=== PATIENT | male | born 1980 | race Caucasian/White ===

== ENCOUNTER 2022-06-15 10:41 | Emergency (ER) | payer OTHER, SELFPAY ==
--- NOTE | ~2022-06-15 | CT_ITS ---
EXAMINATION: CT HEAD WITHOUT CONTRAST CLINICAL INFORMATION: Headache. Nausea vomiting and diarrhea COMPARISON: None. TECHNIQUE: Contiguous axial imaging was performed from the skull base to vertex without intravenous administration of contrast. Coronal and sagittal reformatted images are performed at the CT scanner. [This CT examination was performed using dose optimization techniques as appropriate, variously including the following: *Automated exposure control *Adjustment of mA and/or kV according to patient size (this includes techniques or standardized protocols for targeted exams where dose is matched to indication/reason for exam; i.e. extremities or head) *Use of iterative reconstruction technique] DLP: 739 mGy-cm. FINDINGS: There is no evidence of acute intracranial hemorrhage or territorial infarction. No abnormal mass-effect or midline shift is seen. Almazan to white matter differentiation is well preserved. No extra-axial fluid collections are identified. The ventricles are normal in size. There is no abnormal attenuation within the brain parenchyma. Incidental note of a small thin peripheral rim calcification in the right side of the fourth ventricle There is no osseous abnormality. The mastoid air cells and visualized portions of the paranasal sinuses are well-aerated. CT/CT head/brain wo IV con IMPRESSION: No acute intracranial pathology.
[2022-06-15 11:00] VITALS: BP 144/93; PULSE 86; RESP 19; TEMP 36.6; O2SAT 96; BMI 38.2
--- NOTE | 2022-06-15 11:42 | ED.GENADULT ---
HPI - General Adult General Chief complaint: General Medical Stated complaint: fever/body aches/headaches/vomiting Time Seen by Provider: 06/15/22 11:41 Source: patient Mode of arrival: ambulatory Limitations: no limitations History of Present Illness HPI narrative: 41 year old male with a PMHx of migraines and previous COVID infection, presents to the ED with persistent HILL, fever, body aches, nausea, and vomiting that started 6 days ago. Patient states that he has experienced similar symptoms before when he previously had COVID. He tested negative for COVID 3 times since the onset of symptoms including twice at home and once at [facility]. He reports going to [facility] ED on Saturday where they did extensive testing but ultimately told him it was a viral infection. He denies any chest pain, shortness of breath, blurry vision, double vision, diarrhea, dizziness, neck pain, photophobia, known tick bite, recent trauma or falls, or any sick contacts. Onset (ago): day(s) (6) Radiation: non-radiation Severity: mild Severity scale (1-10): 3 Quality: aching and dull Pain Consistency: constant Relieving factors: none Associated symptoms: fever/chills, headaches and nausea/vomiting Treatments prior to arrival: other (Tylenol) Related Data Previous Rx's Medication Instructions Recorded [id number]-styieoarlnkgi-etihddre 1 cap PO Q8H PRN pain #10 caps 06/15/22 50 mg-300 mg-40 mg capsule (Fioricet) Allergies Allergy/AdvReac Type Severity Reaction Status Date / Time Unable to Assess Allergy Verified 06/15/22 11:03 Review of Systems Constitutional: Constitutional: Reports chills, Reports fever(s) and Reports headache(s) Eyes: Eyes: Reports no additional eye complaints, Denies blurry vision, Denies change in vision, Denies diplopia, Denies eye discharge, Denies loss of vision and Denies eye pain ENT: Denies dizziness, Reports headache(s), Denies nasal congestion and Denies sore throat Cardiovascular: Cardiovascular: Reports no additional cardiovascular complaints, Denies chest pain, Denies lightheadedness, Denies Loss of Consciousness and Denies dyspnea Respiratory: Respiratory: Denies cough and Denies dyspnea Gastrointestinal: Gastrointestinal: Reports no additional gastrointestinal complaints, Denies abdominal pain, Denies melena, Denies hematochezia, Denies change in bowel habits and Denies change in stool character Genitourinary: Genitourinary: Reports no additional male genitourinary complaints, Denies hematuria, Denies oliguria, Denies difficulty urinating, Denies dysuria, Denies urinary frequency, Denies urinary hesitancy, Denies urinary incontinence and Denies urinary urgency Musculoskeletal: Musculoskeletal: Reports no additional musculoskeletal complaints, Denies back pain, Reports myalgias, Denies numbness and Denies tingling Integumentary/Breasts: Skin/Breast: Reports system reviewed and no additional complaints, except as docu Neurologic: Denies dizziness, Reports headache(s), Denies loss of vision, Denies numbness and Denies tingling Psychiatric: Psychiatric: Reports no additional psychiatric complaints Endocrine: Endocrine: Reports no additional endocrine complaints Hematologic/Lymphatic: Hematologic/Lymphatic: Reports no additional hematologic/lymphatic complaints Allergic/Immunologic: Allergic/Immunologic: Reports no additional allergic/immunologic complaints PMFSH Past Medical History Attestation statement: The following information was validated with the patient. Source: old records reviewed and nursing notes reviewed Social History Social History Advance Directives: No Physical Exam ED Vital Signs: Vital Signs - 24 hr 06/15/22 11:00 06/15/22 12:35 06/15/22 15:22 Temperature 98 F 99.8 F 99.5 F Pulse Rate 86 82 84 Respiratory Rate 19 18 16 Blood Pressure 144/93 H 144/90 H 138/75 Pulse Oximetry 96 95 98 Oxygen Delivery Method Room Air Room Air Room Air 06/15/22 18:32 06/15/22 20:34 Temperature 99.6 F 99.6 F Pulse Rate 79 69 Respiratory Rate 16 16 Blood Pressure 126/76 105/62 Pulse Oximetry 95 94 Oxygen Delivery Method Room Air Room Air BMI result Body Mass Index 38.2 Const General: cooperative, no acute distress, alert and awake Nutritional Appearance: well nourished Orientation/consciousness: patient oriented x3 Limitations: no limitations HENMT Head: Yes normal to inspection and Yes atraumatic Ears: hearing grossly normal bilaterally and external ears normal General nose exam: Normal external nose present, no nasal discharge noted and no epistaxis Face and sinus: Yes normal facial exam, Yes sinuses nontender, No abrasion and No laceration Mouth: Normal oral and palatal mucosa present, no drooling and no muffled voice Eyes General: appearance normal, both eyes and all related structures Periorbital: periorbital findings normal Eyelids: Yes eyelids normal Conjunctivae: conjunctivae normal Pupils: Equal, round and reactive pupils present EOM: EOMs intact bilaterally Neck Neck: Yes normal visual inspection, Yes full ROM, Yes no lymphadenopathy, Yes no meningeal signs and Yes supple Lymphatic: no lymphadenopathy noted Chest Chest palpation & inspection: normal inspection of the chest Resp Effort & Inspection: normal respiratory effort and able to speak in complete sentences Auscultation: clear to auscultation bilaterally, no rales, no rhonchi and no wheezes Cardio Jugular venous distension: no JVD Rate: regular rate Rhythm: regular rhythm Heart sounds: S1 normal heart sound present Peripheral pulses: posterior tibial pulses present GI Inspection: Yes normal to inspection Palpation (GI): Soft to palpation, nontender, no guarding and not rigid General: Yes no CVA tenderness Back/Spine/Pelvis Back: no CVA tenderness Skin General skin exam: no rashes or lesions noted Lesions: no lesions Rashes: no rashes Neuro General: patient oriented x3, moves all extremities and no meningeal signs Cranial nerves: Yes Equal, round and reactive pupils present Cognition (Neuro): normal cognition Motor exam (neuro): 5/5 motor strength present throughout Sensory Exam: Normal double simultaneous stimulation for sensation Coordination: [id number]-[id number] test normal Extrem General: Yes normal to inspection, Yes full ROM and Yes capillary refill normal Psych Appearance: grossly normal Mental Status: mental status grossly normal Affect: normal affect Attitude: cooperative Thought process: Normal thought process present Thought content: Normal thought content present Insight: Good insight present (Psych) Medical Decision Making [facility] Narrative Medical decision making narrative: Patient is a 41 year old assigned male at with a history of migraines and COVID infection presenting to the emergency department today with a persistent headache and feeling generally unwell over the last 5 days. Patient's physical exam was unremarkable. Patient's blood work showed an elevated ESR and CRP. Patient's urine showed no acute process. Patient's head CT showed no acute process. I reveiewed all the records from [facility] where he had a negative CT abdomen and an unremarkable work up, including a negative tick panel. Patient's clinical presentation at this time is most consistent with a viral illness. Patient does not have any meningeal signs and I do not suspect this patient of being septic. I explained my physical exam findings as well as all test results to the patient. I answered all questions asked by the patient. Patient received IV fluids, morphine, toradol, benadryl, and reglan which he stated helped his symptoms significantly. I stressed the importance of the patient taking his medication as prescribed. I stressed the importance of the patient following up with his primary care provider. I stressed the importance of the patient returning to the emergency department immediately if his symptoms were to worsen or if he were to develop any dizziness, shortness of breath, difficulty breathing, chest pain, blurry vision, loss of vision, nausea, vomiting, abdominal pain, fever, chills, back pain, or any other complaints. Patient verbalized agreement and understanding with this treatment plan and discharge. Medical Records Medical records reviewed: Yes I reviewed the patient's medical records. Lab Data Lab results reviewed: Yes I reviewed the patient's lab results. Result diagrams: 06/15/22 12:38 06/15/22 12:38 Labs: Lab Results 06/15/22 06/15/22 06/15/22 Range/Units 12:38 12:38 12:38 WBC 7.2 (4.8-10.8) X10*3/uL RBC 4.71 (4.60-5.80) X10*6/uL Hgb 12.8 L (14.0-18.0) g/dl Hct 38.7 L (42.0-52.0) % MCV 82.2 (80.0-98.0) fL MCH 27.2 (27.0-33.0) pg MCHC 33.1 (31.0-36.0) g/dl RDW 13.3 (11.0-16.0) % Plt Count 281 (160-400) X10*3/uL MPV 10.7 (9.4-12.4) fL Immature Gran % (Auto) 0.3 (0.0-0.4) % Neut % (Auto) 77.6 H (45-73) % Lymph % (Auto) 13.1 L (20-40) % [place] % (Auto) 8.5 (2-11) % Eos % (Auto) 0.1 (0-4) % Baso % (Auto) 0.4 (0-2) % Lymph # (Auto) 0.9 L (1.2-4.9) X10*3/uL [place] # (Auto) 0.6 (0.1-1.2) X10*3/uL Eos # (Auto) 0.0 (0.0-0.4) X10*3/uL Baso # (Auto) 0.0 (0.0-0.2) X10*3/uL Abs Immat Gran (auto) 0.02 (0.00-0.03) X10*3/uL Absolute Neuts (auto) 5.6 (2.0-8.3) x10*3/uL Absolute Nucleated RBC 0.000 (0.0-0.012) X10*3/uL Nucleated RBC % (auto) 0.0 (0.0-0.2) /100WBC ESR 81 H (0-15) MM/HR Sodium 136 (135-145) mmol/L Potassium 4.1 (3.3-5.1) mmol/L Chloride 96 (96-108) mmol/L Carbon Dioxide 26 (22-29) mmol/L Anion Gap 18 (12-20) BUN 7 L (9-16) mg/dL Creatinine 0.83 (0.5-1.4) mg/dL Estim Creat Clear Calc 166.5 Estimated GFR > 60 Random Glucose 115 (60-115) mg/dL Calcium 9.0 (8.4-10.2) mg/dL Magnesium 1.7 (1.6-2.6) mg/dL Total Bilirubin 0.4 (0.0-1.0) mg/dL AST 28 (5-37) U/L ALT 39 (0-40) U/L Alkaline Phosphatase 78 (39-117) U/L C-Reactive Protein 29.72 H (< or = 0.50) mg/dL Total Protein 7.3 (6.5-8.0) g/dL Albumin 4.0 (3.5-5.0) g/dL Urine Color Urine Appearance Urine pH (5.0-9.0) Ur Specific [place] (1.005-1.025) Urine Protein (Neg-Trace) mg/dL Urine Glucose (UA) (Negative) mg/dL Urine Ketones (Negative) mg/dL Urine Blood (Negative) Urine Nitrite (Negative) Ur Leukocyte Esterase (Negative) Urine RBC (0-2) /HPF Urine WBC (0-5) /HPF Ur Squamous Epith Cells (0-2) /HPF Urine Bacteria (None Seen) Hyaline Casts (0-2) /LPF Respiratory Panel Martin Adenovirus (Rapid PCR) B.pert (TEM-PCR) B.parapertussis DNA PCR C. pneumoniae DNA (PCR) Coronavirus OC43 (PCR) Coronavirus HKU1 (PCR) Coronavirus 229E (PCR) Coronavirus NL63 (PCR) Human Metapneumovir PCR Influenza A (RT-PCR) Influenza B (RT-PCR) M. pneumoniae (PCR) Parainfluenza 1 (PCR) Parainfluenza 2 (PCR) Parainfluenza 3 (PCR) Parainfluenza 4 (PCR) RSV (PCR) Entero/Rhino (PCR) SARS-CoV-2 RNA (RT-PCR) 06/15/22 06/15/22 06/15/22 Range/Units 12:38 14:40 15:58 WBC (4.8-10.8) X10*3/uL RBC (4.60-5.80) X10*6/uL Hgb (14.0-18.0) g/dl Hct (42.0-52.0) % MCV (80.0-98.0) fL MCH (27.0-33.0) pg MCHC (31.0-36.0) g/dl RDW (11.0-16.0) % Plt Count (160-400) X10*3/uL MPV (9.4-12.4) fL Immature Gran % (Auto) (0.0-0.4) % Neut % (Auto) (45-73) % Lymph % (Auto) (20-40) % [place] % (Auto) (2-11) % Eos % (Auto) (0-4) % Baso % (Auto) (0-2) % Lymph # (Auto) (1.2-4.9) X10*3/uL [place] # (Auto) (0.1-1.2) X10*3/uL Eos # (Auto) (0.0-0.4) X10*3/uL Baso # (Auto) (0.0-0.2) X10*3/uL Abs Immat Gran (auto) (0.00-0.03) X10*3/uL Absolute Neuts (auto) (2.0-8.3) x10*3/uL Absolute Nucleated RBC (0.0-0.012) X10*3/uL Nucleated RBC % (auto) (0.0-0.2) /100WBC ESR (0-15) MM/HR Sodium (135-145) mmol/L Potassium (3.3-5.1) mmol/L Chloride (96-108) mmol/L Carbon Dioxide (22-29) mmol/L Anion Gap (12-20) BUN (9-16) mg/dL Creatinine (0.5-1.4) mg/dL Estim Creat Clear Calc Estimated GFR Random Glucose (60-115) mg/dL Calcium (8.4-10.2) mg/dL Magnesium (1.6-2.6) mg/dL Total Bilirubin (0.0-1.0) mg/dL AST (5-37) U/L ALT (0-40) U/L Alkaline Phosphatase (39-117) U/L C-Reactive Protein (< or = 0.50) mg/dL Total Protein (6.5-8.0) g/dL Albumin (3.5-5.0) g/dL Urine Color Dark Yellow Urine Appearance Cloudy Urine pH 6.0 (5.0-9.0) Ur Specific [place] 1.020 (1.005-1.025) Urine Protein 30 (1+) H (Neg-Trace) mg/dL Urine Glucose (UA) Negative (Negative) mg/dL Urine Ketones Trace (Negative) mg/dL Urine Blood Trace H (Negative) Urine Nitrite Negative (Negative) Ur Leukocyte Esterase Negative (Negative) Urine RBC 11-20 H (0-2) /HPF Urine WBC 0-5 (0-5) /HPF Ur Squamous Epith Cells 0-2 (0-2) /HPF Urine Bacteria None Seen (None Seen) Hyaline Casts 0-2 (0-2) /LPF Respiratory Panel Martin Cancelled Cancelled Adenovirus (Rapid PCR) Cancelled Cancelled B.pert (TEM-PCR) Cancelled Cancelled B.parapertussis DNA PCR Cancelled Cancelled C. pneumoniae DNA (PCR) Cancelled Cancelled Coronavirus OC43 (PCR) Cancelled Cancelled Coronavirus HKU1 (PCR) Cancelled Cancelled Coronavirus 229E (PCR) Cancelled Cancelled Coronavirus NL63 (PCR) Cancelled Cancelled Human Metapneumovir PCR Cancelled Cancelled Influenza A (RT-PCR) Cancelled Cancelled Influenza B (RT-PCR) Cancelled Cancelled M. pneumoniae (PCR) Cancelled Cancelled Parainfluenza 1 (PCR) Cancelled Cancelled Parainfluenza 2 (PCR) Cancelled Cancelled Parainfluenza 3 (PCR) Cancelled Cancelled Parainfluenza 4 (PCR) Cancelled Cancelled RSV (PCR) Cancelled Cancelled Entero/Rhino (PCR) Cancelled Cancelled SARS-CoV-2 RNA (RT-PCR) Cancelled Cancelled 06/15/22 Range/Units 15:58 WBC (4.8-10.8) X10*3/uL RBC (4.60-5.80) X10*6/uL Hgb (14.0-18.0) g/dl Hct (42.0-52.0) % MCV (80.0-98.0) fL MCH (27.0-33.0) pg MCHC (31.0-36.0) g/dl RDW (11.0-16.0) % Plt Count (160-400) X10*3/uL MPV (9.4-12.4) fL Immature Gran % (Auto) (0.0-0.4) % Neut % (Auto) (45-73) % Lymph % (Auto) (20-40) % [place] % (Auto) (2-11) % Eos % (Auto) (0-4) % Baso % (Auto) (0-2) % Lymph # (Auto) (1.2-4.9) X10*3/uL [place] # (Auto) (0.1-1.2) X10*3/uL Eos # (Auto) (0.0-0.4) X10*3/uL Baso # (Auto) (0.0-0.2) X10*3/uL Abs Immat Gran (auto) (0.00-0.03) X10*3/uL Absolute Neuts (auto) (2.0-8.3) x10*3/uL Absolute Nucleated RBC (0.0-0.012) X10*3/uL Nucleated RBC % (auto) (0.0-0.2) /100WBC ESR (0-15) MM/HR Sodium (135-145) mmol/L Potassium (3.3-5.1) mmol/L Chloride (96-108) mmol/L Carbon Dioxide (22-29) mmol/L Anion Gap (12-20) BUN (9-16) mg/dL Creatinine (0.5-1.4) mg/dL Estim Creat Clear Calc Estimated GFR Random Glucose (60-115) mg/dL Calcium (8.4-10.2) mg/dL Magnesium (1.6-2.6) mg/dL Total Bilirubin (0.0-1.0) mg/dL AST (5-37) U/L ALT (0-40) U/L Alkaline Phosphatase (39-117) U/L C-Reactive Protein (< or = 0.50) mg/dL Total Protein (6.5-8.0) g/dL Albumin (3.5-5.0) g/dL Urine Color Urine Appearance Urine pH (5.0-9.0) Ur Specific [place] (1.005-1.025) Urine Protein (Neg-Trace) mg/dL Urine Glucose (UA) (Negative) mg/dL Urine Ketones (Negative) mg/dL Urine Blood (Negative) Urine Nitrite (Negative) Ur Leukocyte Esterase (Negative) Urine RBC (0-2) /HPF Urine WBC (0-5) /HPF Ur Squamous Epith Cells (0-2) /HPF Urine Bacteria (None Seen) Hyaline Casts (0-2) /LPF Respiratory Panel Martin Cancelled Adenovirus (Rapid PCR) Cancelled B.pert (TEM-PCR) Cancelled B.parapertussis DNA PCR Cancelled C. pneumoniae DNA (PCR) Cancelled Coronavirus OC43 (PCR) Cancelled Coronavirus HKU1 (PCR) Cancelled Coronavirus 229E (PCR) Cancelled Coronavirus NL63 (PCR) Cancelled Human Metapneumovir PCR Cancelled Influenza A (RT-PCR) Cancelled Influenza B (RT-PCR) Cancelled M. pneumoniae (PCR) Cancelled Parainfluenza 1 (PCR) Cancelled Parainfluenza 2 (PCR) Cancelled Parainfluenza 3 (PCR) Cancelled Parainfluenza 4 (PCR) Cancelled RSV (PCR) Cancelled Entero/Rhino (PCR) Cancelled SARS-CoV-2 RNA (RT-PCR) Cancelled Imaging Data CT scan - head: Attestation: I personally reviewed and interpreted this imaging study as follows: My impression: No acute process. Radiologist's impression: EXAMINATION: CT HEAD WITHOUT CONTRAST CLINICAL INFORMATION: Headache. Nausea vomiting and diarrhea COMPARISON: None. TECHNIQUE: Contiguous axial imaging was performed from the skull base to vertex without intravenous administration of contrast. Coronal and sagittal reformatted images are performed at the CT scanner. [This CT examination was performed using dose optimization techniques as appropriate, variously including the following: *Automated exposure control *Adjustment of mA and/or kV according to patient size (this includes techniques or standardized protocols for targeted exams where dose is matched to indication/reason for exam; i.e. extremities or head) *Use of iterative reconstruction technique] DLP: 739 mGy-cm. FINDINGS: There is no evidence of acute intracranial hemorrhage or territorial infarction. No abnormal mass-effect or midline shift is seen. Almazan to white matter differentiation is well preserved. No extra-axial fluid collections are identified. The ventricles are normal in size. There is no abnormal attenuation within the brain parenchyma. Incidental note of a small thin peripheral rim calcification in the right side of the fourth ventricle There is no osseous abnormality. The mastoid air cells and visualized portions of the paranasal sinuses are well-aerated. CT/CT head/brain wo IV con IMPRESSION: No acute intracranial pathology. ? Dictated By: Mohinder Joseph MD Signed By: Electronically signed by Mohinder Joseph MD 06/15/22 1698 Discharge Plan Discharge Clinical Impression: Viral illness, Migraine Patient Disposition: Home, Self-Care Instructions: Migraine Headache (ED), Viral Syndrome (ED) Additional Instructions: Follow up with your primary care provider. Return to the emergency department immediately if your symptoms worsen or if you develop any dizziness, shortness of breath, difficulty breathing, chest pain, blurry vision, loss of vision, nausea, vomiting, abdominal pain, fever, chills, back pain, or any other complaints. Prescriptions: New inintlodue-sgigecklqrgot-kiis [Fioricet] 50-300-40 mg capsule 1 cap PO Q8H PRN (Reason: pain) Qty: 10 0RF Referrals: Davi Henriquez MD [Primary Care Provider] - Stand Alone Forms: Work/School Release Print Language: Persian
[2022-06-15] MEDS: ondansetron HCL 4 MG/2 ML VIAL IVPUSH ×2 (12:22→16:11)
[2022-06-15] MEDS: Ketorolac Tromethamine 15 MG/ML VIAL IVPUSH ×2 (12:22→19:50)
[2022-06-15] MEDS: 0.9 % Sodium Chloride 1,000 ML 999 ML IV ×2 (12:24→19:46)
[2022-06-15 12:35] VITALS: BP 144/90; PULSE 82; RESP 18; TEMP 37.7; O2SAT 95
[2022-06-15 12:50] LABS: MANUAL DIFF FLAG NO
[2022-06-15 12:55] LABS: Basophils Percent Auto 0.4 % (0-2); Eosinophils Percent Auto 0.1 % (0-4); Hematocrit 38.7 % (42.0-52.0); Hemoglobin 12.8 g/dl (14.0-18.0); Imm Gran Abs Auto 0.02 X10*3/uL (0.00-0.03); Imm Gran Pct Auto 0.3 % (0.0-0.4); Lymphocytes Absolute Auto 0.9 X10*3/uL (1.2-4.9); Lymphocytes Percent Auto 13.1 % (20-40); Mean Corpuscular HGB Conc 33.1 g/dl (31.0-36.0); Mean Corpuscular Hemoglobin 27.2 pg (27.0-33.0); Mean Corpuscular Volume 82.2 fL (80.0-98.0); Mean Platelet Volume 10.7 fL (9.4-12.4); Monocytes Absolute Auto 0.6 X10*3/uL (0.1-1.2); Monocytes Percent Auto 8.5 % (2-11); Neutrophils Absolute Auto 5.6 x10*3/uL (2.0-8.3); Neutrophils Percent Auto 77.6 % (45-73); Platelet Count 281 X10*3/uL (160-400); Red Blood Count 4.71 X10*6/uL (4.60-5.80); Red Cell Distribution Width 13.3 % (11.0-16.0); White Blood Count 7.2 X10*3/uL (4.8-10.8)
--- NOTE | 2022-06-15 13:01 | PC.NURSE ---
PT A&Ox3, reports headache and fevers at home since Saturday. Denies chest pain and dizziness. IV placed, meds given as documented.
[2022-06-15 13:06] LABS: Alanine Aminotransferase 39 U/L (0-40); Alkaline Phosphatase 78 U/L (39-117); Anion Gap 18 (12-20); Aspartate Amino Transferase 28 U/L (5-37); Bilirubin Total 0.4 mg/dL (0.0-1.0); Blood Urea Nitrogen 7 mg/dL (9-16); C Reactive Protein 29.72 mg/dL (< or = 0.50); Carbon Dioxide 26 mmol/L (22-29); Chloride 96 mmol/L (96-108); Creatinine Clr Calc Pharmacy 166.5; Estimated Glomerular Filt Rate > 60; Glucose Random 115 mg/dL (60-115); Magnesium 1.7 mg/dL (1.6-2.6); Potassium 4.1 mmol/L (3.3-5.1); Sodium 136 mmol/L (135-145); Total Protein 7.3 g/dL (6.5-8.0)
[2022-06-15 14:17] LABS: Erythrocyte Sedimentation Rate 81 MM/HR (0-15)
[2022-06-15 15:22] VITALS: BP 138/75; PULSE 84; RESP 16; TEMP 37.5; O2SAT 98
[2022-06-15 16:07] LABS: Appearance Urine Cloudy; Color Urine Dark Yellow; Glucose Urine UA Negative (Negative); Leukocyte Esterase Urine Negative (Negative); Nitrite Urine Negative (Negative); UMIC TRIGGER UACC YES; Urine Blood Trace (Negative); Urine Ketones Trace mg/dL (Negative); Urine Protein 30 (1+) mg/dL (Neg-Trace)
[2022-06-15] MEDS: Morphine Sulfate 4 MG/ML CARTRIDGE IVPUSH (16:09)
[2022-06-15 16:12] LABS: Bacteria Urine None Seen (None Seen); Hyaline Casts Urine 0-2 /LPF (0-2); Squamous Epithelial Cell Urine 0-2 /HPF (0-2); WBC Urine 0-5 /HPF (0-5)
[2022-06-15] MEDS: Acetaminophen 325 MG TABLET 650 MG PO (17:49)
[2022-06-15 18:32] VITALS: BP 126/76; PULSE 79; RESP 16; TEMP 37.6; O2SAT 95
[2022-06-15] MEDS: Metoclopramide HCl 10 MG/2 ML VIAL IVPUSH (19:49)
[2022-06-15] MEDS: diphenhydrAMINE HCL 50 MG/ML VIAL IVPUSH (19:50)
[2022-06-15 20:34] VITALS: BP 105/62; PULSE 69; RESP 16; TEMP 37.6; O2SAT 94
[2022-06-16 11:34] LABS: Adenovirus PCR Not Detected (Not Detect.); Bordetella parapertussis PCR Not Detected (Not Detect.); Bordetella pertussis PCR Not Detected (Not Detect.); Chlamydia pneumoniae PCR Not Detected (Not Detect.); Coronavirus 229E PCR Not Detected (Not Detect.); Coronavirus HKU1 PCR Not Detected (Not Detect.); Coronavirus NL63 PCR Not Detected (Not Detect.)
[2022-06-16 11:35] LABS: Coronavirus OC43 PCR Not Detected (Not Detect.); Human metapneumovirus PCR Not Detected (Not Detect.); Influenza A PCR Not Detected (Not Detect.); Influenza B PCR Not Detected (Not Detect.); Mycoplasma pneumoniae PCR Not Detected (Not Detect.); Parainfluenza 1 PCR Not Detected (Not Detect.); Parainfluenza 2 PCR Not Detected (Not Detect.); Parainfluenza 3 PCR Not Detected (Not Detect.); Parainfluenza 4 PCR Not Detected (Not Detect.); RSV PCR Not Detected (Not Detect.); Rhino/Enterovirus PCR Not Detected (Not Detect.); SARS-CoV-2 PCR Not Detected (Not Detect.)
[2022-06-17 23:42] LABS: A. Phagocytphilium DNA,RT-PCR NOT DETECTED (NOT DETECTED); Babesia Microti DNA, RT-PCR NOT DETECTED (NOT DETECTED); Borrelia Miyamotoi,DNA RT-PCR NOT DETECTED (NOT DETECTED); E.Chaffeensis DNA RT-PCR NOT DETECTED (NOT DETECTED); Lyme(Borrelia ssp)DNA RT-PCR NOT DETECTED (NOT DETECTED)
[2022-06-19 12:58] LABS: Source-Tick borne disease BLOOD
== END 2022-06-15 21:06 | disposition home or self-care (01) ==
PROVIDERS: Physician Assistant Medical; Emergency Provider Student in an Organized Health Care Education/Training Program; PCP Internal Medicine
DX: G43.909 Migraine, unspecified, not intractable, without status migrainosus (principal); R50.9 Fever, unspecified; M79.10 Myalgia, unspecified site; Z79.899 Other long term (current) drug therapy; Z20.822 Contact with and (suspected) exposure to COVID-19
CPT/HCPCS: 36415; 70450; 80053; 81001; 83735; 85025; 85652; 86140; 87633; 87798; 87801; 96361; 96374; 96375; 96376; 99284; J1200; J1885; J2270; J2405; J2765

== ENCOUNTER 2022-06-19 12:53 | Emergency (ER) | payer OTHER, SELFPAY ==
[2022-06-19 12:57] VITALS: BP 159/84; PULSE 89; RESP 18; TEMP 36.6; O2SAT 95; BMI 36.9
[2022-06-19 14:03] LABS: MANUAL DIFF FLAG NO
[2022-06-19 14:04] LABS: Basophils Percent Auto 0.3 % (0-2); Eosinophils Percent Auto 0.2 % (0-4); Hematocrit 38.3 % (42.0-52.0); Hemoglobin 12.7 g/dl (14.0-18.0); Imm Gran Abs Auto 0.21 X10*3/uL (0.00-0.03); Imm Gran Pct Auto 1.7 % (0.0-0.4); Lymphocytes Absolute Auto 1.8 X10*3/uL (1.2-4.9); Mean Corpuscular HGB Conc 33.2 g/dl (31.0-36.0); Mean Corpuscular Hemoglobin 27.1 pg (27.0-33.0); Mean Corpuscular Volume 81.7 fL (80.0-98.0); Mean Platelet Volume 9.8 fL (9.4-12.4); Monocytes Absolute Auto 1.5 X10*3/uL (0.1-1.2); Monocytes Percent Auto 12.1 % (2-11); Neutrophils Absolute Auto 8.5 x10*3/uL (2.0-8.3); Neutrophils Percent Auto 70.7 % (45-73); Platelet Count 389 X10*3/uL (160-400); Red Blood Count 4.69 X10*6/uL (4.60-5.80); Red Cell Distribution Width 14.2 % (11.0-16.0)
[2022-06-19 14:05] LABS: Appearance Urine Cloudy; Color Urine Yellow; Glucose Urine UA Negative (Negative); Leukocyte Esterase Urine Negative (Negative); Nitrite Urine Negative (Negative); Specific Gravity - Urine 1.025 (1.005-1.025); UMIC TRIGGER UACC YES; Urine Blood Trace (Negative); Urine Ketones Trace mg/dL (Negative); Urine Protein 30 (1+) mg/dL (Neg-Trace)
[2022-06-19 14:08] LABS: Bacteria Urine None Seen (None Seen); Hyaline Casts Urine 0-2 /LPF (0-2); WBC Urine 0-5 /HPF (0-5)
[2022-06-19 14:20] LABS: Alanine Aminotransferase 59 U/L (0-40); Albumin Level 3.9 g/dL (3.5-5.0); Alkaline Phosphatase 86 U/L (39-117); Anion Gap 16 (12-20); Aspartate Amino Transferase 41 U/L (5-37); Bilirubin Direct 0.2 mg/dL (0.0-0.5); Bilirubin Total 0.3 mg/dL (0.0-1.0); Blood Urea Nitrogen 9 mg/dL (9-16); Chloride 94 mmol/L (96-108); Creatinine Clr Calc Pharmacy 163.5; Estimated Glomerular Filt Rate > 60; Glucose Random 122 mg/dL (60-115); Lipase 19 U/L (8-78); Sodium 136 mmol/L (135-145); Total Protein 7.2 g/dL (6.5-8.0)
[2022-06-19 14:29] LABS: Carbon Dioxide 30 mmol/L (22-29)
[2022-06-19 15:15] LABS: Influenza A PCR NEGATIVE (Negative); Influenza B PCR NEGATIVE (Negative); Resp Syncy Virus RNA Qual PCR NEGATIVE (Negative); SARS COV2 PCR INHOUSE NEGATIVE (Negative)
[2022-06-19 15:56] VITALS: BP 145/89; PULSE 92; RESP 18; TEMP 38.3; O2SAT 95
[2022-06-19] MEDS: Acetaminophen 325 MG TABLET 650 MG PO (15:59)
[2022-06-19 18:35] VITALS: BP 130/74; PULSE 76; RESP 16; TEMP 37.4; O2SAT 95
--- NOTE | 2022-06-19 19:16 | ED.GENADULT ---
HPI - General Adult General Chief complaint: General Medical Stated complaint: weak, not eating, fever Time Seen by Provider: 06/19/22 18:30 Source: patient Mode of arrival: ambulatory Limitations: language barrier ([place]-speaking medical center manager utilized) History of Present Illness HPI narrative: Patient is a 41-year-old male presents emergency department for evaluation of multiple symptoms. He reports symptom onset to have been 10 days ago. He has been experiencing intermittent headache, fevers, fatigue, body aches, nausea, vomiting, decreased appetite. States he was seen approximately 1 week ago at [facility], and was seen in this emergency department 5 days ago. States he has had multiple CT scans as well as blood work, and everything has been normal by his report. He states that he continues to have symptoms, which he does note are typically worse in the evening. Denies recent unintentional weight loss, bloody or coffee-ground emesis, bloody or dark stools, abdominal pain, chest pain, shortness of breath, difficulty breathing, cough. Related Data Previous Rx's Medication Instructions Recorded mbzpowuicf-mrxowpnegzgbm-srxowkzb 1 cap PO Q8H PRN pain #10 caps 06/15/22 50 mg-300 mg-40 mg capsule (Fioricet) ondansetron HCl 4 mg tablet 4 mg PO Q8H PRN nausea and 06/19/22 vomiting 4 days #15 tabs Allergies Allergy/AdvReac Type Severity Reaction Status Date / Time No Known Allergies Allergy Verified 06/19/22 15:58 Review of Systems Review of Systems: Constitutional: No weight loss. Positive fever. No chills. No weakness. Positive fatigue. Eye: No swelling. No redness. ENT: No sore throat. No rhinorrhea. No nasal congestion. No sore throat. No difficulty swallowing. Skin: No rash. No itching. Cardiovascular: No chest pain. No chest pressure. No palpitations. No pedal edema. Respiratory: No shortness of breath. No cough. No sputum production. Gastrointestinal: Positive anorexia. Positive nausea. Positive vomiting. No diarrhea. No abdominal pain. No blood in stool. Genitourinary: No burning micturition. No urinary frequency. No incontinence. Neurologic: Positive headache. No dizziness. No pre-syncope/ syncope. No unilateral weakness. No ataxia. No numbness. No tingling. No change in bowel or bladder control. Musculoskeletal: Positive muscle aches. No back pain. No joint pain. No stiffness. Hematologic: No bleeding. No bruising. Lymphatics: No enlarged lymph nodes. Psychiatric:No depression. No anxiety. Endocrine: No polyuria. No polydipsia. Yes all other systems are reviewed and are negative [facility] Past Medical History Attestation statement: The following information was validated with the patient. Source: old records reviewed Social History Social History Advance Directives: No Advance Directives Information Provided: No Physical Exam ED Vital Signs: Vital Signs - 24 hr 06/19/22 12:57 06/19/22 15:56 06/19/22 18:35 Temperature 98 F 100.9 F H 99.4 F Pulse Rate 89 92 76 Respiratory Rate 18 18 16 Blood Pressure 159/84 H 145/89 H 130/74 Pulse Oximetry 95 95 95 Oxygen Delivery Method Room Air Room Air Room Air BMI result Body Mass Index 36.9 Appearance: Alert.?Oriented to person, place and time. No acute distress.?Normal affect. Eyes: Pupils equal, round and reactive to light.? ENT: Pharynx normal.?? Neck: Normal inspection.? Neck supple.?? CVS: Heart sounds normal. Normal heart rate and rhythm.? Pulses normal.?? Respiratory: No respiratory distress.? Lung sounds clear to auscultation bilaterally?? Abdomen: Soft and non-tender. Normoactive bowel sounds. Back: No midline spinal tenderness, step-offs, deformities. No areas of fluctuance it is, induration, erythema, warmth. No lesions wounds or rashes. Skin: Skin warm and dry.? Normal skin color.? Extremities: No lower extremity edema.? Neuro: Moves all extremities spontaneously. Sensation intact bilaterally. CN II-XII intact. No focal neuro deficits. Ambulates with normal steady gait. Course Course Course Narrative: Overall he appears fatigued, is able to ambulate with a slow steady gait. Vital signs overall stable, he was febrile while in the waiting room with T-max 100.9 degrees responding to Tylenol. No meningeal signs not consistent with meningitis. No focal neurological deficits. No palpable tenderness of the spine Evelia does not appear consistent with spinal abscess or epidural abscess. Had labs obtained from triage which reveal a very mild leukocytosis at 12.0, normocytic anemia, overall unremarkable BMP, no renal injury, very mildly elevated AST and ALT but no right upper quadrant tenderness or abdominal pain upon examination. Urinalysis not consistent with urinary tract infection. Was seen in the emergency department 06/15/2022, had extensive workup at that time, labs overall unremarkable aside from elevated inflammatory markers head CT was unremarkable, a records from [facility] were reviewed as well. Tick panel, respiratory pathogen panel obtained that day have all resulted as negative, COVID-19, influenza testing are negative as well. At this time, symptoms do appear consistent with continuous viral infection, although cannot completely exclude autoimmune diseases. However, discussed with patient that this would need to be further worked up outpatient with a primary care provider. Patient tolerating oral intake while in the emergency department. Patient be discharged home with new prescription for ondansetron, advised hydration, bland diet with slow progression. Reviewed worrisome signs and symptoms to return back to the emergency department for. Alternating between acetaminophen and ibuprofen as needed for fever/pain. All questions were answered. Patient discharged home in stable condition, ambulatory with a slow steady gait. Medical Decision Making Medical Records Medical records reviewed: Yes I reviewed the patient's medical records. Lab Data Lab results reviewed: Yes I reviewed the patient's lab results. Result diagrams: 06/19/22 13:54 06/19/22 13:54 Labs: Lab Results 06/19/22 06/19/22 06/19/22 Range/Units 13:54 13:54 13:54 WBC 12.0 H (4.8-10.8) X10*3/uL RBC 4.69 (4.60-5.80) X10*6/uL Hgb 12.7 L (14.0-18.0) g/dl Hct 38.3 L (42.0-52.0) % MCV 81.7 (80.0-98.0) fL MCH 27.1 (27.0-33.0) pg MCHC 33.2 (31.0-36.0) g/dl RDW 14.2 (11.0-16.0) % Plt Count 389 D (160-400) X10*3/uL MPV 9.8 (9.4-12.4) fL Immature Gran % (Auto) 1.7 H (0.0-0.4) % Neut % (Auto) 70.7 (45-73) % Lymph % (Auto) 15.0 L (20-40) % Orange % (Auto) 12.1 H (2-11) % Eos % (Auto) 0.2 (0-4) % Baso % (Auto) 0.3 (0-2) % Lymph # (Auto) 1.8 (1.2-4.9) X10*3/uL Orange # (Auto) 1.5 H (0.1-1.2) X10*3/uL Eos # (Auto) 0.0 (0.0-0.4) X10*3/uL Baso # (Auto) 0.0 (0.0-0.2) X10*3/uL Abs Immat Gran (auto) 0.21 H (0.00-0.03) X10*3/uL Absolute Neuts (auto) 8.5 H (2.0-8.3) x10*3/uL Absolute Nucleated RBC 0.000 (0.0-0.012) X10*3/uL Nucleated RBC % (auto) 0.0 (0.0-0.2) /100WBC Sodium 136 (135-145) mmol/L Potassium 4.0 (3.3-5.1) mmol/L Chloride 94 L (96-108) mmol/L Carbon Dioxide 30 H (22-29) mmol/L Anion Gap 16 (12-20) BUN 9 (9-16) mg/dL Creatinine 0.83 (0.5-1.4) mg/dL Estim Creat Clear Calc 163.5 Estimated GFR > 60 Random Glucose 122 H (60-115) mg/dL Calcium 9.0 (8.4-10.2) mg/dL Total Bilirubin 0.3 (0.0-1.0) mg/dL Direct Bilirubin 0.2 (0.0-0.5) mg/dL AST 41 H D (5-37) U/L ALT 59 H (0-40) U/L Alkaline Phosphatase 86 (39-117) U/L Total Protein 7.2 (6.5-8.0) g/dL Albumin 3.9 (3.5-5.0) g/dL Lipase 19 (8-78) U/L Urine Color Urine Appearance Urine pH (5.0-9.0) Ur Specific [place] (1.005-1.025) Urine Protein (Neg-Trace) mg/dL Urine Glucose (UA) (Negative) mg/dL Urine Ketones (Negative) mg/dL Urine Blood (Negative) Urine Nitrite (Negative) Ur Leukocyte Esterase (Negative) Urine RBC (0-2) /HPF Urine WBC (0-5) /HPF Ur Squamous Epith Cells (0-2) /HPF Urine Bacteria (None Seen) Hyaline Casts (0-2) /LPF Influenza Type A (PCR) NEGATIVE (Negative) Influenza Type B (PCR) NEGATIVE (Negative) RSV RNA Qual (PCR) NEGATIVE (Negative) SARS-CoV-2 RNA (RT-PCR) NEGATIVE (Negative) 06/19/22 Range/Units 13:54 WBC (4.8-10.8) X10*3/uL RBC (4.60-5.80) X10*6/uL Hgb (14.0-18.0) g/dl Hct (42.0-52.0) % MCV (80.0-98.0) fL MCH (27.0-33.0) pg MCHC (31.0-36.0) g/dl RDW (11.0-16.0) % Plt Count (160-400) X10*3/uL MPV (9.4-12.4) fL Immature Gran % (Auto) (0.0-0.4) % Neut % (Auto) (45-73) % Lymph % (Auto) (20-40) % Orange % (Auto) (2-11) % Eos % (Auto) (0-4) % Baso % (Auto) (0-2) % Lymph # (Auto) (1.2-4.9) X10*3/uL Orange # (Auto) (0.1-1.2) X10*3/uL Eos # (Auto) (0.0-0.4) X10*3/uL Baso # (Auto) (0.0-0.2) X10*3/uL Abs Immat Gran (auto) (0.00-0.03) X10*3/uL Absolute Neuts (auto) (2.0-8.3) x10*3/uL Absolute Nucleated RBC (0.0-0.012) X10*3/uL Nucleated RBC % (auto) (0.0-0.2) /100WBC Sodium (135-145) mmol/L Potassium (3.3-5.1) mmol/L Chloride (96-108) mmol/L Carbon Dioxide (22-29) mmol/L Anion Gap (12-20) BUN (9-16) mg/dL Creatinine (0.5-1.4) mg/dL Estim Creat Clear Calc Estimated GFR Random Glucose (60-115) mg/dL Calcium (8.4-10.2) mg/dL Total Bilirubin (0.0-1.0) mg/dL Direct Bilirubin (0.0-0.5) mg/dL AST (5-37) U/L ALT (0-40) U/L Alkaline Phosphatase (39-117) U/L Total Protein (6.5-8.0) g/dL Albumin (3.5-5.0) g/dL Lipase (8-78) U/L Urine Color Yellow Urine Appearance Cloudy Urine pH 6.0 (5.0-9.0) Ur Specific [place] 1.025 (1.005-1.025) Urine Protein 30 (1+) H (Neg-Trace) mg/dL Urine Glucose (UA) Negative (Negative) mg/dL Urine Ketones Trace (Negative) mg/dL Urine Blood Trace H (Negative) Urine Nitrite Negative (Negative) Ur Leukocyte Esterase Negative (Negative) Urine RBC 6-10 H (0-2) /HPF Urine WBC 0-5 (0-5) /HPF Ur Squamous Epith Cells 3-5 (0-2) /HPF Urine Bacteria None Seen (None Seen) Hyaline Casts 0-2 (0-2) /LPF Influenza Type A (PCR) (Negative) Influenza Type B (PCR) (Negative) RSV RNA Qual (PCR) (Negative) SARS-CoV-2 RNA (RT-PCR) (Negative) Discharge Plan Discharge Clinical Impression: Acute viral syndrome Patient Disposition: Home, Self-Care Instructions: Viral Syndrome (ED) Additional Instructions: Be sure to rest, stay well hydrated drinking plenty of fluids, eat small frequent meals. Tylenol/ibuprofen can be used as needed for fever/pain. Ondansetron as needed for nausea. Introduce a bland diet including crackers, bananas, rice, soup, toast avoid vegetables. This may slowly begin to progress to plain baked or boiled chicken or turkey. Avoid dairy products or foods high in fat increase as this may worsen your symptoms. As we discussed, it is very important that you establish care with a new primary care provider. You have been given contact information for primary care providers associated with this hospital system. You may return to the emergency department with any new or worsening symptoms or concerns. Aseg?rese de descansar, mantenerse khanh hidratado, beber muchos l?quidos, comer comidas karis?as y frecuentes. Se puede usar Tylenol/ibuprofen seg?n sea necesario para la fiebre/el dolor. Ondansetr?n seg?n sea necesario para las n?useas. Introduzca jordana dieta blanda que incluya galletas saladas, pl?tanos, arroz, sopa, tostadas y evite las verduras. [place] puede comenzar lentamente a progresar a li o pavo al horno o hervido. Evite los productos l?cteos o los alimentos con alto contenido de grasa, ya que esto puede empeorar ananda s?ntomas. [place] comentamos, es muy importante que establezca la atenci?n con un nuevo proveedor de atenci?n primaria. Puede regresar al departamento de emergencias con cualquier s?ntoma o inquietud nueva o que empeore. Prescriptions: New ondansetron HCl 4 mg tablet 4 mg PO Q8H PRN (Reason: nausea and vomiting) 4 Days Qty: 15 0RF No Action [id number] [Fioricet] 50-300-40 mg capsule 1 cap PO Q8H PRN (Reason: pain) Qty: 10 0RF Referrals: Physician,None [Primary Care Provider] - Interventions: ED Discharge Assessment Last Done: 06/19/22 19:56 Discharge Date/Time: 06/19/22 19:57 Print Language: [place]
== END 2022-06-19 19:57 | disposition home or self-care (01) ==
PROVIDERS: Emergency Provider Student in an Organized Health Care Education/Training Program
DX: B34.9 Viral infection, unspecified (principal); R50.9 Fever, unspecified; R11.0 Nausea; Z20.822 Contact with and (suspected) exposure to COVID-19
CPT/HCPCS: 0241U; 36415; 80048; 80076; 81001; 83690; 85025; 99283

== ENCOUNTER 2025-05-17 11:43 | Emergency (ER) | payer OTHER, SELFPAY ==
--- OUTSIDE RECORDS SUMMARY | 2025-05-13 16:00 | XMS_ITS | Encounter Summary ---
Author Organization [facility] Address [address] [place] [address] Care Team Providers Care Field Hauler Name Role Phone Marielle Oconnell MD Primary Care Provider [phone] Encounter Details Date Type Department Care Team ([facility] st Contact Info) Description 05/13/2025 4:00 PM EDT Office Visit [facility] [address] [place] [id number] Alee Johnson PA [address] [place] [address] Migraine without aura and without status migrainosus, not intractable (Primary Dx) Social History Tobacco Use Types Packs/Day Years Used Date Smoking Tobacco: Never Smokeless Tobacco: Never Sex and Gender Information Value Date Recorded Sex Assigned at Not on file Legal Sex Male 2:34 PM EST Gender Identity Not on file Sexual Orientation Not on file documented as of this encounter Last Filed Vital Signs Vital Sign Reading Time Taken Comments Blood Pressure 161/106 05/13/2025 4:01 PM EDT Pulse 76 05/13/2025 4:01 PM EDT Temperature - - Respiratory Rate - - Oxygen Saturation 99% 05/13/2025 4:01 PM EDT Inhaled Oxygen Concentration - - Weight - - Height - - Body Mass Index - - documented in this encounter Ordered Prescriptions Prescription Sig Dispense Quantity Refills Last Filled Start Date End Date magnesium oxide (MAG-OX) 400 mg magnesium tablet Take 1 tablet (400 mg total) by mouth 1 (one) time each day. 30 tablet 5 05/13/2025 riboflavin (VITAMIN B2) 400 mg tablet Take 1 tablet (400 mg total) by mouth 1 (one) time each day. 60 tablet 5 05/13/2025 6 rizatriptan (MAXALT) 10 mg tablet Take 1 tablet (10 mg total) by mouth 1 (one) time if needed for migraine (may repeat x1). May repeat in 2 hours if unresolved. Do not exceed 30 mg in 24 hours. 9 tablet 5 05/13/2025 documented in this encounter Progress Notes * EBENEZER Nix - 05/13/2025 4:00 PM EDT HPI: Keyur Toro is a 44 y.o. year old male referred to our center by Marielle Oconnell MD for evaluation and management of headache . 44 yo male with no significant PMH of Lt shoulder surgery Interval history Patient returns for follow-up visit. He states that he never received Rx for amitriptyline after last visit. Headaches continue Tried sumatriptan for treatment of acute migraine but this was ineffective. Initial visit history: Headache: Patient presents for evaluation of headache. Symptoms began about started in childhood , Generally, the headaches last about several hours and occur every morning. The headaches are usuallyworse in the morning. The headaches are usually moderate, pounding, and throbbing and are located in frontal and cervical . The patient rates her most severe headaches a 8 on a scale from 1 to 10. Recently, the headaches have been stable. Work attendance or other daily activities are affected by the headaches. Precipitating factors include: AC , Putting helmet . The headaches are usually not preceded by an aura. Associated neurologic symptoms: nausea , . The patient denies nausea , . Home treatment has included excedrin , advil with some improvement. Other history includes: migraine headachesdiagnosed in the past. Family history includes migraine headaches in mother and malignant tumor . Apart from the headache patient denies any blurry vision double vision tingling numbness or weakness and occasional left upper extremity numbness when he sleeps for prolonged period of time In relation to sleep habits sleep 5-6 hrs Sleep apnea symptoms he snores and stop breathing wakes up unrefreshed and exhausted throughout theday and wake up with morning headache No past medical history on file. Current Outpatient Medications Medication Sig Dispense Refill cholecalciferol (Vitamin D3) 50 mcg (2,000 unit) tablet Take 1 tablet (2,000 Units total) by mouth 1 (one) time each day. 90 tablet 2 magnesium oxide (MAG-OX) 400 mg magnesium tablet Take 1 tablet (400 mg total) by mouth 1 (one) timeeach day. 30 tablet 5 riboflavin (VITAMIN B2) 400 mg tablet Take 1 tablet (400 mg total) by mouth 1 (one) time each day. 60 tablet 5 rizatriptan (MAXALT) 10 mg tablet Take 1 tablet (10 mg total) by mouth 1 (one) time if needed for migraine (may repeat x1). May repeat in 2 hours if unresolved. Do not exceed 30 mg in 24 hours. 9 tablet 5 SUMAtriptan (IMITREX) 50 mg tablet Take 1 tablet (50 mg total) by mouth 1 (one) time if needed for migraine (may repeat x1). May repeat dose once in 2 hours if no relief. Do not exceed 2 doses in 24 hours. 9 tablet 3 No current facility-administered medications for this visit. No Known Allergies Social history: Tobacco: No Alcohol no Drug use: no Caffeine intake none [employer] Family history: There is no significant family history Neurologic Exam: Vitals: 05/13/25 1601 BP: (!) 161/106 Pulse: 76 SpO2: 99% MS: AOx3 CN: perrla, V1-3 intact to LT, face symmetric, bilateral SCM/trapezius 5/5, tongue/uvula/palate midline Motor: 5/5 in all extremities Sensation: Intact to light touch, temperature, and vibration in all extremities Reflexes: 2+ in bilateral biceps and patellae, toes downgoing bilaterally Cerebellar: FNF intact bilaterally, FFM intact bilaterally, YULIANA intact bilaterally, tandem gait normal, romberg negative Labs: Imaging: All images were reviewed by me. MRI brain 03/17/2025: Normal brain MRI with and without contrast A/P: Keyur Toro is a 44 y.o. year old male with migraine. He is not interested in a prescription medication for migraine prophylaxis at this time, but is willing to add riboflavin and magnesium. Will try rizatriptan PRN acute migraine, -declines migraine prophyalxis -will add Mg and riboflavin both 400 mg daily -begin trial of rizatriptan 10 mg PRN acute migraine -reviewed recent normal MRI brain results Counseled on avoidance of migraine triggers, particularly sleep deprivation, missed meals, dehydration, certain foods and avoiding excessive caffeine/NSAIDs. -RTC in 3 months for follow up or sooner PRN The patient and I discussed the clinical picture during today's appointment. Additional time was spent prior to the actual appointment reviewing records, lab values and imaging results and preparing documentation for today's visit. There was also time spent following the in person visit documenting, arranging for further diagnostic testing and follow-up appointments. The entire time spent in thisprocess was greater than 30 minutes. The majority of the actual vyww-ef-[id number] visit was spent counseling the patient with respect to the current neurological picture. EBENEZER Nix documented in this encounter Plan of Treatment Upcoming Encounters Date Type Department Care Team (Late st Contact Info) Description 07/21/2025 3:30 PM EST Office Visit [facility] [place] [facility] [place] [address] [place] [phone] Alee Johnson PA [address] [place] [address] 11/29/2025 3:45 PM EDT Office Visit [facility] - [place] [address] [place] [phone] Marielle Oconnell MD [address] [place] [phone] documented as of this encounter Visit Diagnoses Diagnosis Migraine without aura and without status migrainosus, not intractable- Primary documented in this encounter Discontinued Medications Medication Sig Discontinue Reason Start Date End Da te SUMAtriptan (IMITREX) 50 mg tablet Take 1 tablet (50 mg total) by mouth 1 (one) time if needed for migraine (may repeat x1). May repeat dose once in 2 hours if no relief. Do not exceed 2 doses in 24 hours. Therapy completed 03/09/2025 05/16/2025 documented as of this encounter Care Teams Field Hauler Relationship Specialty Start Date End Date Marielle Oconnell MD [address] [place] [address] [address] [place] [address] PCP - General 10/04/22 documented as of this encounter
[2025-05-17] VITALS (12 sets, daily range): BP systolic 111–130; BP diastolic 74–91; PULSE 55–68; RESP 12–16; TEMP 36.9; O2SAT 94–98; BMI 36.4
--- NOTE | ~2025-05-17 | XR_ITS ---
EXAMINATION: XR SHOULDER 2 OR MORE VIEWS LEFT HISTORY: pain, injury COMPARISON: There are no prior studies available for comparison. FINDINGS: Three portable views of the left shoulder are submitted. Osseous mineralization is normal. Evaluation is extremely limited by difficulty in patient positioning. The glenoid is not well visualized. No obvious fracture is seen. The soft tissues are unremarkable. XR/XR shoulder LT min 2V IMPRESSION: Limited examination. A repeat study performed without portable technique is recommended. Electronically signed by: Jason Guerrier MD 05/17/2025 12:20 PM EDT
--- NOTE | ~2025-05-17 | XR_ITS ---
EXAMINATION: XR SHOULDER, LEFT CLINICAL INFORMATION: post reduction COMPARISON: X-ray from one hour 15 minutes ago TECHNIQUE: Internal rotation and scapular Y view of the left shoulder. FINDINGS: The humeral head projects over the glenoid on the scapular Y-view. No fracture is identified. AC joint is intact. XR/XR shoulder LT min 2V IMPRESSION: Interval reduction of anterior dislocation. Electronically signed by: Eloy Ortiz MD 05/17/2025 01:29 PM EDT
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
[2025-05-17] MEDS: diazePAM 10 MG/2 ML CARTRIDGE 5 MG IVPUSH (12:30)
--- NOTE | 2025-05-17 13:05 | PC.NURSE ---
Respiratory contacted for procedural sedation, MD aware. Awaiting arrival.
--- OUTSIDE RECORDS SUMMARY | 2025-05-17 15:03 | XMS_ITS | Clinical Summary ---
Author Organization [facility] Address [address] [place] [address] Phone Care Team Providers Care Dockworker Name Role Phone Marielle Oconnell MD Primary Care Provider [phone] Allergies No known active allergies Medications cholecalciferol (Vitamin D3) 50 mcg (2,000 unit) tablet Take 1 tablet (2,000 Units total) by mouth 1 (one) time each day. 90 tablet 2 5 Active rizatriptan (MAXALT) 10 mg tablet Take 1 tablet (10 mg total) by mouth 1 (one) time if needed for migraine (may repeat x1). May repeat in 2 hours if unresolved. Do not exceed 30 mg in 24 hours. 9 tablet 5 5 05/13/20 26 Active riboflavin (VITAMIN B2) 400 mg tablet Take 1 tablet (400 mg total) by mouth 1 (one) time each day. 60 tablet 5 5 05/08/20 26 Active magnesium oxide (MAG-OX) 400 mg magnesium tablet Take 1 tablet (400 mg total) by mouth 1 (one) time each day. 30 tablet 5 5 Active SUMAtriptan (IMITREX) 50 mg tablet Take 1 tablet (50 mg total) by mouth 1 (one) time if needed for migraine (may repeat x1). May repeat dose once in 2 hours if no relief. Do not exceed 2 doses in 24 hours. 9 tablet 3 5 05/16/20 25 Discontinu ed(Therapy completed) Encounters Date Type Department Care Team Description 05/13/2025 4:00 PM EDT Office Visit [facility] [address] [phone] Alee Johnson PA Migraine without aura and without status migrainosus, not intractable (Primary Dx) 03/17/2025 1:35 PM EDT - 03/17/2025 11:59 PM EDT Hospital Encounter [facility] [address] [place] [address] Nonintractable headache, unspecified chronicity pattern, unspecified headache type Discharge Disposition: Home or Self Care 03/09/2025 2:00 PM EDT Office Visit [address] [phone] Kevin Jackson MD Nonintractable headache, unspecified chronicity pattern, unspecified headache type from Last 3 Months Family History Medical History Relation Name Comments Other cancer Aunt Diabetes Father Hypertension Father Relation Name Status Comments Aunt Alive Father Social History Tobacco Use Types Packs/Day Years Used Date Smoking Tobacco: Never Smokeless Tobacco: Never Tobacco Cessation:Counseling Given: Not Answered Sex and Gender Information Value Date Recorded Sex Assigned at Not on file Legal Sex Male 2:34 PM EST Gender Identity Not on file Sexual Orientation Not on file Obstetrics History Last Filed Vital Signs Vital Sign Reading Time Taken Comments Blood Pressure 161/106 05/13/2025 4:01 PM EDT Pulse 76 05/13/2025 4:01 PM EDT Temperature 36.3 C (97.3 F) 03/09/2025 3:43 PM EDT Respiratory Rate - - Oxygen Saturation 99% 05/13/2025 4:01 PM EDT Inhaled Oxygen Concentration - - Weight 130 kg (287 lb) 02/04/2025 1:08 PM EDT Height 185.4 cm (6' 1 ) 02/04/2025 1:08 PM EDT Body Mass Index 37.87 02/04/2025 1:08 PM EDT Plan of Treatment Upcoming Encounters Date Type Department Care Team (Late st Contact Info) Description 07/21/2025 3:30 PM EST Office Visit [facility] [address] [phone] Alee Johnson PA [address] [facility] [address] [place], [place] [phone] 11/29/2025 3:45 PM EDT Office Visit Internal Medicine - [place] 175 [facility] [address] [place] [address] Marielle Oconnell MD [address] [facility] [address] [place] [address] Health Maintenance Due Date Last Done Comments DTaP,Tdap,and Td Vaccines (1 - Tdap) 1999 Hepatitis B Vaccines (1 of 3 - 19+ 3-dose series) 1999 HPV Vaccines (1 - 3-dose SCD M series) 2007 HIV Screening 10/06/2022 Hepatitis C Screening 10/06/2022 Social Influencers of Health Screening 10/06/2022 Depression Screening 08/19/2024 COVID-19 Vaccine (1 - 2023-2 5 season) 2025 Influenza Vaccine (#1) 2025 Cholesterol Screening (Lipid Panel) 11/26/2029 11/26/2024 RSV Immunization Adult Patie nts (1 - 1-dose 75+ series) 2055 HIB Vaccines Aged Out No longer eligi ble based on patient's age to complete this topic Hepatitis A Vaccines Aged Out No long er eligible based on patient's age to complete this topic IPV Vaccines Aged Out No longer eligi ble based on patient's age to complete this topic MMR Vaccines Aged Out No longer eligi ble based on patient's age to complete this topic Meningococcal ACWY Vaccine Aged Out N o longer eligible based on patient's age to complete this topic Meningococcal B Vaccine Aged Out No l onger eligible based on patient's age to complete this topic Pneumococcal Vaccine: Pediat rics (0 to 5 Years) and At-Risk Patients (6 to 49 Years) Aged Out No longer eligi ble based on patient's age to complete this topic RSV Immunization Patients Un aparna 20 months Aged Out No longer eligible b ased on patient's age to complete this topic Varicella Vaccines Aged Out No longer eligible based on patient's age to complete this topic Procedures Procedure Name Priority Date/Time Associated Diagnosis Comments MR BRAIN WO AND W CONTRAST Routine 03/17/2025 2:42 PM EDT Nonintractable headache, unspecified chronicity pattern, unspecified headache type LIPID PANEL WITH REFLEX TO DIRECT LDL Routine 11/26/2024 9:53 AM EDT Vitamin D deficiency Other fatigue Adult general medical examination from Last 3 Months or Most Recently Relevant to Health Maintenance Results * MR Brain wo and w Contrast (03/17/2025 2:42 PM EDT) Anatomical Region Laterality Modality Head and Neck Magnetic Resonan ce 03/17/2025 5:50 PM EDT Impressions 03/17/2025 5:54 PM EDT Normal brain MRI without and with contrast. -------- FINAL REPORT -------- Dictated By: BRITTNEY MASSEY Dictated Date: 03/17/2025 17:50 ET Assigned Physician: BRITTNEY MASSEY Reviewed and Electronically Signed By: BRITTNEY MASSEY Signed Date: 03/17/2025 17:54 ET Workstation ID: [id number] Transcribed By: Self Edit Transcribed Date: 03/17/2025 17:50 ET Narrative 03/17/2025 5:54 PM EDT PROCEDURE: Brain MRI INDICATION: Headache, family history of brain tumor TECHNIQUE: Multiplanar, multisequence MRI of the brain without and with contrast. 20 mL Dotarem injected intravenously without complication from a 20 mL vial COMPARISON: No priors available. FINDINGS: No acute infarct, mass effect, or intracranial hemorrhage. Brain parenchyma is normal in signal. No abnormal intracranial susceptibility artifact or enhancement. Sella and foramen magnum are normal. Ventricles, sulci, and cisterns are normal in size and configuration. No hydrocephalus. Major intracranial arterial flow voids are normal. Major dural venous sinuses enhance normally with contrast. Scattered mucosal thickening seen throughout the sinuses. Mastoid air cells are clear. Orbits and extra cranial soft tissues are normal. Calvarium is normal. Procedure Note Brittney Massey MD - 03/17/2025 PROCEDURE: Brain MRI INDICATION: Headache, family history of brain tumor TECHNIQUE: Multiplanar, multisequence MRI of the brain without and withcontrast. 20 mL Dotarem injected intravenously without complication froma 20 mL vial COMPARISON: No priors available. FINDINGS: No acute infarct, mass effect, or intracranial hemorrhage. Brain parenchyma is normal in signal. No abnormal intracranialsusceptibility artifact or enhancement. Sella and foramen magnum are normal. Ventricles, sulci, and cisterns are normal in size and configuration. Nohydrocephalus. Major intracranial arterial flow voids are normal. Major dural venoussinuses enhance normally with contrast. Scattered mucosal thickening seen throughout the sinuses. Mastoid aircells are clear. Orbits and extra cranial soft tissues are normal. Calvarium is normal. IMPRESSION: Normal brain MRI without and with contrast. -------- FINAL REPORT -------- Dictated By: BRITTNEY MASSEY Dictated Date: 03/17/2025 17:50 ET Assigned Physician: BRITTNEY MASSEY Reviewed and Electronically Signed By: BRITTNEY MASSEY Signed Date: 03/17/2025 17:54 ET Workstation ID: [id number] Transcribed By: Self Edit Transcribed Date: 03/17/2025 17:50 ET Kevin Jackson MD [facility] MRI PROCEDURES Final Result * (ABNORMAL) Lipid panel with reflex to direct LDL (11/26/2024 9:53 AM EDT) Cholesterol 204(H) 0 - 200 mg/dL LAB CHEMISTRY METHOD 11/26/2024 12:05 PM EDT [facility] Triglycerides 61 0 - 150 mg/dL LAB CHEMISTRY METHOD 11/26/2024 12:05 PM EDT [facility] HDL 53 >=40 mg/dL LAB CHEMISTRY METHOD 11/26/2024 12:05 PM EDT [facility] LDL Calculated 139(H) 0 - 100 mg/dL LAB CHEMISTRY METHOD 11/26/2024 12:05 PM [facility] VLDL Cholesterol Kevin 12.2 mg/dL LAB CHEMISTRY METHOD 11/26/2024 12:05 PM EDT [facility] Non HDL Chol. (LDL+VLDL) 151(H) <145 mg/dL LAB CHEMISTRY METHOD 11/26/2024 12:05 PM EDT [facility] Chol/HDL Ratio 3.8 0.0 - 4.4 LAB CHEMISTRY METHOD 11/26/2024 12:05 PM EDT [facility] Blood Venous blood specimen / Unknown Venipuncture / Unknown 11/26/2024 9:53 AM EDT 11/26/2024 10:48 AM EDT us Marielle Oconnell MD LAB BLOOD ORDERABLES Final Res ult [facility] [address] [place] [address], from Last 3 Months or Most Recently Relevant to Health Maintenance Insurance [facility] [place] [address] Care Teams Dockworker Relationship Specialty Start Date End Date Marielle Oconnell MD [address] [phone] PCP - General 10/04/22
--- OUTSIDE RECORDS SUMMARY | 2025-05-17 15:03 | XMS_ITS ---
Author Name [facility] Organization Unknown Care Team Organization Name Specialty Phone Email Start Date End Da te [facility] Marielle Oconnell Primary Care 12/24/2022 04/06/20 [facility] Jose Sylvester Primary Care 11/20/2022 04/06/2024 [facility] Reddy Michelle Primary Care 06/26/20222023
--- OUTSIDE RECORDS SUMMARY | 2025-05-17 15:03 | XMS_ITS | Clinical Summary ---
Author Organization [facility] Address [address] [place] [address] Care Team Providers Care Painting Department Supervisor Name Role Phone Unavailable Primary Care Provider Unavailabl e Source Comments PLEASE NOTE, if this patient is a minor, it may be UNLAWFUL to discuss sensitive information that is contained in these records (such as FAMILY PLANNING, MENTAL HEALTH or SUBSTANCE ABUSE) with the minor patient's parent or other person without the patient's specific authorization.[facility] Allergies No known active allergies Encounters Date Type Department Care Team Description 05/08/2025 10:20 AM EDT Office Visit [address] [phone] Hillary Babin 04/21/2025 3:00 PM EDT Office Visit [address] [phone] Clement Martinez from Last 3 Months Social History Tobacco Use Types Packs/Day Years Used Date Smoking Tobacco: Never Passive Smoke Exposure: Never Smokeless Tobacco: Never Tobacco Cessation:Counseling Given: Not Answered Sex and Gender Information Value Date Recorded Sex Assigned at Not on file Legal Sex Male 1:01 PM PDT Gender Identity Not on file Sexual Orientation Not on file Last Filed Vital Signs Vital Sign Reading Time Taken Comments Blood Pressure 136/86 04/21/2025 3:22 PM EDT Pulse 80 04/21/2025 3:22 PM EDT Temperature - - Respiratory Rate - - Oxygen Saturation - - Inhaled Oxygen Concentration - - Weight - - Height - - Body Mass Index - - Plan of Treatment Upcoming Encounters Date Type Department Care Team (Late st Contact Info) Description 06/09/2025 2:00 PM EDT Office Visit [address] [phone] Cristian Desai DMD [address] [place] [address] 11/08/2025 3:40 PM EDT Office Visit [facility] [address] [place] [phone] Renetta Browning [address] [place] [address] Health Maintenance Due Date Last Done Comments Anxiety Screening 1980 Hepatitis C Screening 1980 HIV Screening 1995 Imm-DTaP/Tdap/Td (1 - Tdap) 1999 Imm-Hepatitis B (1 of 3 - 19+ 3-dose series) 9 Imm-HPV (1 - 3-dose SCDM series) 2007 Alcohol and Drug Screen 08/19/2024 Depression Annual Screen 08/19/2024 [id number] () 04/19/2025 Imm-Influenza (#1) 2025 Diabetes Screening 11/26/2025 11/26/2024 Hypertension Screening (#1) 04/21/2026 Tobacco Screening 04/21/2026 04/21/2025 Dental BW 04/23/2026 04/21/2025 Dental Perio Charting 04/23/2026 04/21/2025 Dental Examination 05/10/2026 05/08/2025 Dental Prophy 05/10/2026 05/08/2025 Lipid Screening 11/26/2029 11/26/2024 Dental FMX/Pano 04/23/2030 04/21/2025 Procedures Procedure Name Priority Date/Time Associated Diagnosis Comments DENTAL CASE MANAGEMENT - MOTIVATIONAL INTV Routine 05/08/2025 10:20 AM EDT Chronic gingivitis, plaque induced Encounter for dental examination and cleaning with abnormal findings PROPHYLAXIS - ADULT Routine 05/08/2025 1 0:20 AM EDT Chronic gingivitis, plaque induced Encounter for dental examination and cleaning with abnormal findings COMP ORAL EVALUATION - NEW/ESTABLISHED PATIENT Routine 05/08/2025 10:20 AM EDT Chronic gingivitis, plaque induced Encounter for dental examination and cleaning with abnormal findings CARIES RISK ASSESSMENT & DOC FINDING HIGH RISK Routine 05/08/2025 10:20 AM EDT Chronic gingivitis, plaque induced Encounter for dental examination and cleaning with abnormal findings NUTRITIONAL COUNSELING CONTROL OF DENTAL DISEASE Routine 05/08/2025 10:20 AM EDT Chronic gingivitis, plaque induced Encounter for dental examination and cleaning with abnormal findings ORAL HYGIENE INSTRUCTIONS Routine 05/08/2025 10:20 AM EDT Chronic gingivitis, plaque induced Encounter for dental examination and cleaning with abnormal findings ORAL CANCER SCREENING Routine 05/08/2025 10:20 AM EDT Chronic gingivitis, plaque induced Encounter for dental examination and cleaning with abnormal findings CASE PRESENTATION SUBS DTL & EXTENSIVE TX PLN Routine 05/08/2025 10:20 AM EDT Encounter for dental examination and cleaning with abnormal findings DENTAL CASE MANAGEMENT - MOTIVATIONAL INTV Routine 04/21/2025 3:00 PM EDT Observation for suspected condition INTRAORAL - COMP SERIES OF RADIOGRAPHIC IMAGES Routine 04/21/2025 3:00 PM EDT Observation for suspected condition CARIES RISK ASSESSMENT & DOC FINDING MOD RISK Routine 04/21/2025 3:00 PM EDT Observation for suspected condition NUTRITIONAL COUNSELING CONTROL OF DENTAL DISEASE Routine 04/21/2025 3:00 PM EDT Observation for suspected condition ORAL HYGIENE INSTRUCTIONS Routine 04/21/2025 3:00 PM EDT Observation for suspected condition ORAL CANCER SCREENING Routine 04/21/2025 3:00 PM EDT Observation for suspected condition CASE PRESENTATION SUBS DTL & EXTENSIVE TX PLN Routine 04/21/2025 3:00 PM EDT Observation for suspected condition 3 O COMPOSITE - WISDOM (NON BILLABLE) Routine 04/21/2025 12:00 AM EDT 29 O AMALGAM - WISDOM (NON BILLABLE) Routine 04/21/2025 12:00 AM EDT 30 CAMMIE AMALGAM - WISDOM (NON BILLABLE) Routine 04/21/2025 12:00 AM EDT 31 CAMMIE AMALGAM - WISDOM (NON BILLABLE) Routine 04/21/2025 12:00 AM EDT 4 O AMALGAM - WISDOM (NON BILLABLE) Routine 04/21/2025 12:00 AM EDT 2 LO AMALGAM - WISDOM (NON BILLABLE) Routine 04/21/2025 12:00 AM EDT 1 O AMALGAM - WISDOM (NON BILLABLE) Routine 04/21/2025 12:00 AM EDT 13 O AMALGAM - WISDOM (NON BILLABLE) Routine 04/21/2025 12:00 AM EDT 14 LO AMALGAM - WISDOM (NON BILLABLE) Routine 04/21/2025 12:00 AM EDT 20 O AMALGAM - WISDOM (NON BILLABLE) Routine 04/21/2025 12:00 AM EDT 19 CAMMIE AMALGAM - WISDOM (NON BILLABLE) Routine 04/21/2025 12:00 AM EDT 18 CAMMIE AMALGAM - WISDOM (NON BILLABLE) Routine 04/21/2025 12:00 AM EDT from Last 3 Months Insurance [facility] [place] [id number]
== END 2025-05-17 14:43 | disposition home or self-care (01) ==
PROVIDERS: Emergency Provider Emergency Medicine; Referring Provider Physician Assistant Medical
DX: S43.005A Unspecified dislocation of left shoulder joint, initial encounter (principal); M25.512 Pain in left shoulder; X50.1XXA Overexertion from prolonged static or awkward postures, initial encounter; X50.9XXA Other and unspecified overexertion or strenuous movements or postures, initial encounter; Y93.02 Activity, running; Y92.9 Unspecified place or not applicable; Y99.0 Civilian activity done for income or pay
CPT/HCPCS: 73030; 96372; 96374; 96375; 99284; 99285; J1171; J2704; J3360

== ENCOUNTER → 2025-05-17 11:46 | Outpatient (BNV) | payer OTHER, SELFPAY | PROVIDERS: Emergency Provider Emergency Medicine; Visit Provider Radiology Diagnostic Radiology | DX: S43.015A Anterior dislocation of left humerus, initial encounter (principal); Z98.890 Other specified postprocedural states | CPT/HCPCS: 73030 ==